=== PATIENT | male | born 2000 | race Caucasian/White ===

== ENCOUNTER 2023-05-31 09:49 | Day surgery (SDC) | payer OTHER ==
[~2023-05-31] VITALS: Ht 170.2 cm; Wt 91.6 kg
[~2023-05-31 09:49] MED LIST: LR 1,000 ML IV SCH; PROZ20CA11 PO
[2023-05-31] MEDS ORDERED: dexAMETHasone 10MG/1ML VIAL PRES.FREE PN ONE (10:15)
[2023-05-31] MEDS ORDERED: MIDAZOLAM INJ 2MG/2ML VIAL IV PRN (10:15)
[2023-05-31] MEDS ORDERED: ROPIvacaine 0.5% 30ML VIAL PN ONE (10:15)
[2023-05-31] MEDS ORDERED: fentaNYL 100 MCG/2 ML INJECTION IV PRN (10:15)
[2023-05-31] MEDS ORDERED: ceFAZolin SOD 2 GM in IV 1 EA IV ONE (11:00)
[2023-05-31] MEDS ORDERED: MIDAZOLAM INJ 2MG/2ML VIAL As Ordered ONE (11:36)
[2023-05-31] MEDS ORDERED: ROCURONIUM BROMIDE 50MG/5ML VIAL As Ordered ONE ×2 (11:36→13:19)
[2023-05-31] MEDS ORDERED: LIDOCAINE 2% 100MG/5ML SDV (FOR ANES.) As Ordered ONE (11:36)
[2023-05-31] MEDS ORDERED: propofoL 200 MG/20 ML VIAL As Ordered ONE (11:36)
[2023-05-31] MEDS ORDERED: fentaNYL 100 MCG/2 ML INJECTION As Ordered ONE (11:36)
[2023-05-31] MEDS ORDERED: ONDANSETRON 4MG 2ML VIAL As Ordered ONE (11:37)
[2023-05-31] MEDS ORDERED: KETOROLAC 60MG 2ML VIAL As Ordered ONE (11:38)
[2023-05-31] MEDS ORDERED: LIDOCAINE 1% SDV 30ML VIAL As Ordered ONE (11:47)
[2023-05-31] MEDS ORDERED: TRANEXAMIC ACID 100 MG/ML 10ML VIAL As Ordered ONE (11:47)
[2023-05-31] MEDS ORDERED: EPINEPHrine 1MG/ML INJ 30ML MD-VIAL As Ordered ONE (11:47)
[2023-05-31] MEDS ORDERED: VANCOMYCIN 1000MG/20ML VIAL As Ordered ONE (11:47)
[2023-05-31] MEDS ORDERED: HYDROmorphone HCL 2MG/ML 1ML VIAL As Ordered ONE (13:24)
[2023-05-31] MEDS ORDERED: oxyCODONE 5MG TAB PO PRN (15:00)
[2023-05-31] MEDS ORDERED: ONDANSETRON 4MG 2ML VIAL IV PRN (15:00)
[2023-05-31] MEDS ORDERED: LR 1,000 ML IV SCH (15:00)
[2023-05-31] MEDS: fentaNYL 100 MCG/2 ML INJECTION IV PRN ×4 (15:48→16:03)
[2023-05-31 17:08] VITALS: BP 138/79; TEMP 97.9; O2SAT 100
== END 2023-05-31 17:28 | disposition home or self-care (01) ==
LOC: M SDC 09:49
PROVIDERS: ATTEND Orthopaedic Surgery
DX: S43.431A Superior glenoid labrum lesion of right shoulder, initial encounter (principal); F17.290 Nicotine dependence, other tobacco product, uncomplicated; F32.A Depression, unspecified; Z79.899 Other long term (current) drug therapy; Z88.0 Allergy status to penicillin; Z88.5 Allergy status to narcotic agent; X58.XXXA Exposure to other specified factors, initial encounter; Y93.9 Activity, unspecified; Y92.9 Unspecified place or not applicable
CPT/HCPCS: 29806; 76000; C1713; C9290; J0171; J0665; J0690; J1100; J1170; J1885; J2250; J2405; J3010; J3370